=== PATIENT | male | born 1960 | race Caucasian/White ===

== ENCOUNTER → 2019-07-19 07:56 | Outpatient (CLI) | payer OTHER, SELFPAY ==
[2019-07-19 09:33] LABS: Cholesterol 181 mg/dL (140-199); HDL Cholesterol 36 mg/dL (40-60); LDL Cholesterol Calculated 112 mg/dL (<100); Triglycerides 164 mg/dL (35-150)
== END ==
PROVIDERS: Visit Provider Internal Medicine Cardiovascular Disease
DX: Z00.00 Encounter for general adult medical examination without abnormal findings (principal)
CPT/HCPCS: 36415; 80061

== ENCOUNTER → 2019-10-22 15:45 | Outpatient (CLI) | payer OTHER, SELFPAY ==
--- NOTE | 2019-10-22 | DI.ECHO.S_ITS ---
[facility]---------+ [facility] +---------+ : : [address] : [address] : : : : [id number] : : : : Phone: [phone]+ Echocardiogram Report + + :Name: STEVEN HUTCHINS Study Date: 10/22/2019 Height: 71 in : :[facility] Weight: 170 lb : : Gender: Male BSA: 2.0 m2 : :: 1960 Age: 59 yrs BP: 128/78 mmHg: :Reason For Study: TACHYCARDIA : :Ordering Physician: Leoncio Mendes : :Tip Performed By: CHRISTOPHERF : :Referring: LEONCIO WHELAN : + + Interpretation Summary 1) Mildly left ventricular thickness (concentric) with normal size, normal wall motion, and normal systolic function (EF 60-65%). 2) Normal right ventricular size and function. 3) No significant valvular abnormalities. 4) No prior Echo available for comparison. Procedure: A two-dimensional transthoracic echocardiogram with color flow and Doppler was performed. The study quality was technically adequate. There is no prior echocardiogram noted for this patient. The patient was in normal sinus rhythm during the exam. Left Ventricle: The left ventricle is normal in size. Left ventricular wall thickness is mildly increased. The ejection fraction is estimated to be 60- 65%. Left ventricular wall motion is normal. Diastolic parameters suggest probable normal left ventricular diastolic function and normal filling pressures. Right Ventricle: The right ventricle is normal in size and function. Atria: Both atria are normal in size. There is no Doppler evidence for an interatrial shunt. Mitral Valve: The mitral valve is normal in structure and function. There is mild mitral regurgitation. Aortic Valve: The aortic valve is trileaflet. The aortic valve opens well. No aortic regurgitation is present. Tricuspid Valve: The tricuspid valve is normal in structure and function. There is trace tricuspid regurgitation. Pulmonary artery pressures cannot be estimated because of the lack of a measurable TR jet velocity. Pulmonic Valve: The pulmonic valve is normal in structure and function. There is mild pulmonic regurgitation. Great Vessels: The aortic root is normal size. The ascending aorta is normal in size. The IVC is of normal diameter and collapses greater than 50% with a sniff. This suggests a low right atrial pressure of 3 mm Hg. Pericardium/ Pleura There is no pericardial effusion. MMode/2D Measurements & Calculations LVIDd: 4.6 cm LVOT diam: 2.1 cm LVIDs: 2.9 cm Ao root diam: 3.5 cm FS: 36.7 % asc Aorta Diam: 3.1 cm EPSS: 0.48 cm IVSd: 1.2 cm LVPWd: 1.3 cm LV haji. diameter/BSA (cm/m^2): 2.3 LV sys. diameter/BSA (cm/m^2): 1.5 LA A2 area: 20.5 cm2 RA long axis: 5.2 cm LA A4 area: 19.2 cm2 RA area: 14.1 cm2 LA length (vol): 5.2 cm RA vol: 32.9 ml LA vol: 64.2 ml RA : 16.7 ml/m2 LA vol index: 32.6 ml/m2 IVC diam: 2.1 cm RVD1 (basal): 3.6 cm RVD2 (mid): 3.0 cm TAPSE: 2.1 cm Doppler Measurements & Calculations Ao V2 max: 119.9 cm/sec LVOT Max Wai: 108.6 cm/sec Ao V2 mean: 81.8 cm/sec LV V1 max P.7 mmHg Ao max P.7 mmHg LV V1 VTI: 23.9 cm Ao mean P.0 mmHg SONIA(I,D): 3.0 cm2 Ao V2 VTI: 27.7 cm SONIA(V,D): 3.1 cm2 sev ratio: 0.86 SONIA indexed to BSA (cm^2/m^2): 1.5 MV E max wai: 81.1 cm/sec PA V2 max: 73.0 cm/sec MV A max wai: 65.8 cm/sec PA V2 mean: 52.7 cm/sec MV E/A: 1.2 PA mean P.2 mmHg Med Peak E' Wai: 11.8 cm/sec PA pr(Accel): 16.6 mmHg E/E' med: 6.9 PA Accel Time: 0.14 sec Lat Peak E' Wai: 15.1 cm/sec E/E' lat: 5.4 E/e' average: 6.1 MV dec time: 0.26 sec MV P1/2t: 73.2 msec MV P1/2t max wai: 81.0 cm/sec SV(LVOT): 81.7 ml MVA(P1/2t): 3.0 cm2 Reading Physician:11:24 AM
== END ==
PROVIDERS: Referring Provider Internal Medicine Cardiovascular Disease; Visit Provider Internal Medicine Cardiovascular Disease
DX: I34.0 Nonrheumatic mitral (valve) insufficiency (principal); I37.1 Nonrheumatic pulmonary valve insufficiency; R00.0 Tachycardia, unspecified
CPT/HCPCS: 93306

== ENCOUNTER 2020-11-21 23:22 | Emergency (ER) | payer OTHER, SELFPAY ==
[2020-11-21 23:30] VITALS: BP 177/84; PULSE 104; RESP 15; TEMP 37.4; O2SAT 96; BMI 24.4
--- NOTE | 2020-11-21 23:42 | ED_ITS ---
HPI - General Adult General Chief complaint: Upper Respiratory Symptoms Stated complaint: Headache and fever Time Seen by Provider: 11/22/20 00:12 Source: patient Mode of arrival: Ambulatory Limitations: no limitations History of Present Illness HPI narrative: This is a 60-year-old male comes emergency department with concern for sinusitis. Patient states he had sinusitis in June. They tried amoxicillin which was unsuccessful followed by Levaquin and he improvement. He states the pain had resolved but he continued to have nasal drainage that was yellow greenish particularly from the left side since then. In the last 24 hours he developed a fever. He has developed increased pain over the left forehead and cheek he states this feels similar to his prior episode knee continues to have increasing yellow-greenish drainage. He denies any chest pain or shortness of breath. No nausea or vomiting. No other GI or urinary symptoms. Patient denies any other symptoms. Related Data Previous Rx's Medication Instructions Recorded doxycycline hyclate 100 mg PO BID #20 tab 11/22/20 Allergies Allergy/AdvReac Type Severity Reaction Status Date / Time No Known Allergies Allergy Uncoded 12/27/17 12:41 Review of Systems Review of Systems ROS Unobtainable: All systems reviewed & are unremarkable except as noted in HPI and below Exam Narrative Exam Narrative: GEN: well nourished, well appearing male, alert and oriented x 3, patient appears to be in mild distress. HEENT: Atraumatic, pupils are equal round reactive to light, extraocular movements are intact, nares show some swelling of the turbinates particularly on the left, patient also has some yellow-greenish drainage, TMs are clear with no fluid, there is no conjunctival pallor. Throat is clear without any exudates, erythema, tonsillar enlargement or uvular deviation, patient has pain over the left maxillary region. Warmth erythema. HEART: Regular rate and rhythm without murmur, clicks, rubs. LUNGS:Lungs clear to auscultation, no wheezes, rales, crackles, chest moves symmetrically ABD:bowel sounds normal, soft, non-tender, no guarding, rebound, rigidity, no masses noted, no hepatosplenomegaly MSCL: full range of motion, normal gait NEURO:CN 2-12 intact, sensation normal SKIN: No rash or other skin changes noted. Initial Vital Signs Initial Vital Signs: Vital Signs Temperature 99.3 F 11/21/20 23:30 Pulse Rate 104 H 11/21/20 23:30 Respiratory Rate 15 11/21/20 23:30 Blood Pressure 177/84 H 11/21/20 23:30 Pulse Oximetry 96 11/21/20 23:30 Course Orders Ordered: Discontinued Medications Doxycycline Hyclate (Doxycycline Hyclate 100 Mg Tablet) 100 mg PO NOW ONE Stop: 11/22/20 00:37 Last Admin: 11/22/20 00:41 Dose: 100 mg Documented by: GHANSHYAM Vital Signs Vital signs: Vital Signs - 8 hr 11/21/20 23:30 11/22/20 00:45 Temperature 99.3 F Pulse Rate 104 H 80 Respiratory Rate 15 18 Blood Pressure 177/84 H 152/84 H Pulse Oximetry 96 94 Medical Decision Making [facility] Narrative Medical decision making narrative: 60-year-old male with reported fever, left- sided maxillary pain, green-yellow nasal discharge with symptoms concerning for possible sinusitis. Patient has been using nasal rinses. He is using Flonase regularly. We discussed adding an antihistamine. With his reported fever plan to start oral antibiotics. Discharge Plan Departure Patient Disposition: Home Clinical Impression: Sinusitis Instructions: DI for Sinusitis Activity Restrictions/Additional Instructions: Follow with your primary care team in the next week if you are not having improvement. You can also follow-up with ENT if her having continued persistent symptoms. I recommended antihistamines such as Claritin once daily. Continue Flonase 1-2 puffs bilateral sides of the nose daily Take antibiotics until they are completely gone. Returned for fevers, lightheadedness or passing out, severe swelling of the face, swelling of the mouth, Throat oropharynx, persistent vomiting, new chest pain or shortness of breath or other new or concerning symptoms. Prescriptions: New doxycycline hyclate 100 mg tablet 100 mg PO BID Qty: 20 RF: 0 Referrals: Panfilo Mcdonnell MD [Physician] -
[2020-11-22] MEDS: DOXYCYCLINE HYCLATE 100 MG TABLET PO (00:41)
[2020-11-22 00:45] VITALS: BP 152/84; PULSE 80; RESP 18; O2SAT 94
== END 2020-11-22 00:46 | disposition home or self-care (01) ==
PROVIDERS: Emergency Provider Emergency Medicine
DX: J32.9 Chronic sinusitis, unspecified (principal)
CPT/HCPCS: 99281; 99283

== ENCOUNTER → 2022-01-12 11:00 | Outpatient (CLI) | payer OTHER, SELFPAY ==
[2022-01-12 13:09] LABS: Add Manual Diff / Slide Review NO; Basophils Absolute Auto 0 /uL (0-100); Basophils Percent Auto 0.6 % (0-2); Eosinophils Absolute Auto 100 /uL (0-450); Eosinophils Percent Auto 2.2 % (2-4); Hematocrit 41.6 % (41-53); Hemoglobin 14.4 g/dL (13.5-17.5); Lymphocytes Absolute Auto 1600 /uL (1100-4500); Lymphocytes Percent Auto 40.4 % (25-40); Mean Corpuscular HGB Conc 34.6 % (30-36); Mean Corpuscular Hemoglobin 29.9 PG (26-34); Mean Corpuscular Volume 86.5 fL (80-100); Monocytes Absolute Auto 500 /uL (0-900); Monocytes Percent Auto 12.4 % (3-14); Neutrophils Absolute Auto 1800 /uL (1500-7000); Neutrophils Percent Auto 44.4 % (50-75); Platelet Count 229 X10^3/uL (150-400); Red Blood Cell Count 4.82 X10^6/uL (4.5-5.9)
[2022-01-12 14:07] LABS: BUN Creatinine Ratio 17.4 (6-22); Blood Urea Nitrogen 15 mg/dL (9-20); Calcium 8.6 mg/dL (8.4-10.2); Carbon Dioxide 29 mmol/L (22-32); Chloride 106 mmol/L (98-107); Cholesterol 178 mg/dL (140-199); Estimated Glomerular Filt Rate > 60 mL/min (>60); Glucose 86 mg/dL (80-110); HDL Cholesterol 30 mg/dL (40-60); HEMOLYSIS < 15 (0-50); LDL Cholesterol Calculated 118 mg/dL (<100); Potassium 4.5 mmol/L (3.4-5.1); Sodium 140 mmol/L (137-145); Triglycerides 151 mg/dL (35-150)
[2022-04-28 16:30] LABS: COVID19 -Nasal RAPID Negative (Negative)
== END ==
PROVIDERS: PCP Family Medicine; Referring Provider Internal Medicine Cardiovascular Disease; Visit Provider Internal Medicine Cardiovascular Disease
DX: I10 Essential (primary) hypertension (principal)
CPT/HCPCS: 36415; 80048; 80061; 85025; 87635; C9803

== ENCOUNTER → 2022-04-28 12:48 | Outpatient (CLI) | payer OTHER, SELFPAY ==
--- NOTE | 2022-04-28 12:50 | DI.ECHO.S_ITS ---
[facility]---------+ [facility] +---------+ : : [address] : [address] : : : : [id number] : : : : Phone: [phone]+ Echocardiogram Report + + :Name: STEVEN HUTCHINS Study Date: 04/28/2022 Height: 71 in : :[facility] ReadingLocation: Weight: 180 lb : : Gender: Male BSA: 2.0 m2 : :: 1960 Age: 62 yrs BP: 131/77 mmHg: :Reason For Study: Chest pain : :Ordering Physician: RADHA, : :LEONCIO Performed By: Shin Lomeli : :Referring: LEONCIO WHELAN : + + Interpretation Summary 1) Mildly left ventricular thickness (concentric) with normal size, normal wall motion, and normal systolic function (EF 60-65%). 2) Normal right ventricular size and function. 3) No significant valvular abnormalities. 4) Compared to the Echo done 10/22/2019, no significant change. Procedure: A two-dimensional transthoracic echocardiogram with color flow and Doppler was performed. The study quality was technically adequate. Comparison is made with the echocardiogram of 10/22/2019. The patient was in normal sinus rhythm during the exam. Left Ventricle: The left ventricle is normal in size. There is mild concentric left ventricular hypertrophy. Left ventricular systolic function is normal. The ejection fraction is estimated to be 60-65%. There are no focal wall motion abnormalities. Diastolic parameters suggest probable normal left ventricular diastolic function and normal filling pressures. Right Ventricle: The right ventricle is normal in size and function. Atria: Both atria are normal in size. The interatrial septum grossly appears intact with no obvious evidence for an atrial septal defect. Mitral Valve: The mitral valve is normal in structure and function. There is mild mitral regurgitation. Aortic Valve: The aortic valve is normal in structure and function. There is no aortic valve stenosis. No aortic regurgitation is present. Tricuspid Valve: The tricuspid valve is normal in structure and function. There is a trace or physiologic amount of tricuspid regurgitation. Pulmonary artery pressures cannot be estimated because of the lack of a measurable TR jet velocity. Pulmonic Valve: The pulmonic valve is normal in structure and function. There is mild pulmonic regurgitation. Great Vessels: The aortic root is normal size. The dimensions of the ascending aorta are normal. The IVC is of normal diameter and collapses greater than 50% with a sniff. This suggests a low right atrial pressure of 3 mm Hg. Pericardium/ Pleura There is no pericardial effusion. There is no pleural effusion. MMode/2D Measurements & Calculations LVIDd: 4.7 cm LVOT diam: 2.2 cm LVIDs: 3.0 cm Ao root diam: 3.4 cm FS: 37.4 % asc Aorta Diam: 3.0 cm IVSd: 1.3 cm LVPWd: 1.1 cm LV haji. diameter/BSA (cm/m^2): 2.3 LV sys. diameter/BSA (cm/m^2): 1.5 LA A2 area: 18.6 cm2 RA long axis: 5.4 cm LA A4 area: 19.1 cm2 RA area: 14.7 cm2 LA length (vol): 5.3 cm RA vol: 34.2 ml LA vol: 57.2 ml RA : 17.0 ml/m2 LA vol index: 28.4 ml/m2 TAPSE: 2.2 cm Doppler Measurements & Calculations Ao V2 max: 122.5 cm/sec LVOT Max Wai: 101.4 cm/sec Ao V2 mean: 82.5 cm/sec LV V1 max P.1 mmHg Ao max P.0 mmHg LV V1 VTI: 20.8 cm Ao mean P.0 mmHg SONIA(I,D): 3.5 cm2 Ao V2 VTI: 23.5 cm SONIA(V,D): 3.2 cm2 sev ratio: 0.88 SONIA indexed to BSA (cm^2/m^2): 1.7 MV E max wai: 91.3 cm/sec SV(LVOT): 81.3 ml MV A max wai: 68.3 cm/sec MV E/A: 1.3 Med Peak E' Wai: 7.6 cm/sec E/E' med: 12.0 Lat Peak E' Wai: 10.3 cm/sec E/E' lat: 8.8 E/e' average: 10.4 MV dec time: 0.18 sec Reading Physician:03:48 PM
--- NOTE | 2022-04-29 18:14 | DI.NM.S_ITS ---
DATE OF SERVICE: 04/28/2022 PROCEDURE PERFORMED: Exercise treadmill stress test without imaging. ORDERING PROVIDER: Dr. Oswald Whelan. INDICATIONS: The patient is a 62-year-old hypertensive male with a history of atrial tachycardia and atypical chest pain. FINDINGS: 1. The patient was able to exercise for 10 minutes, 33 seconds on a standard [place] protocol, suggesting very good exercise capacity with an STACY of -23%, achieving 12.8 METs. 2. He had a normal heart rate response to exercise, achieving a maximum heart rate of 149 BPM (94% of his predicted maximum). He had a mild hypertensive blood pressure response to exercise with a resting blood pressure of 110/70, increasing to a maximum of 210/80. 3. He had no chest discomfort or other anginal symptoms. 4. His resting ECG shows normal sinus rhythm with normal ST segments. There are no significant ST-segment shifts or arrhythmias with stress. IMPRESSION: 1. Normal exercise treadmill study for ischemia. 2. Very good exercise capacity without angina or arrhythmias. He had a mild hypertensive blood pressure response to exercise. Albert Vazquez - KHADIJAH/deann/supriya doc#: [id number]/job#: [id number] dd: 04/29/2022 16:49:00 dt: 04/29/2022 17:51:00 DICTATING /COPIES TO: Morgan Greene MD COPIES MNE: JEFFRY
== END ==
PROVIDERS: PCP Family Medicine; Referring Provider Internal Medicine Cardiovascular Disease; Visit Provider Internal Medicine Cardiovascular Disease
DX: I37.1 Nonrheumatic pulmonary valve insufficiency (principal); I34.0 Nonrheumatic mitral (valve) insufficiency; I51.7 Cardiomegaly; R07.9 Chest pain, unspecified
CPT/HCPCS: 93017; 93306

== ENCOUNTER → 2023-03-23 10:40 | Outpatient (CLI) | payer OTHER, SELFPAY ==
[2023-03-23 12:39] LABS: Cholesterol 110 mg/dL (140-199); HDL Cholesterol 34 mg/dL (40-60); LDL Cholesterol Calculated 60 mg/dL (<100); Triglycerides 81 mg/dL (35-150)
== END ==
PROVIDERS: Referring Provider Internal Medicine Cardiovascular Disease; Visit Provider Internal Medicine Cardiovascular Disease
DX: E78.5 Hyperlipidemia, unspecified (principal)
CPT/HCPCS: 36415; 80061

== ENCOUNTER → 2024-03-26 11:33 | Outpatient (CLI) | payer OTHER, SELFPAY ==
[2024-03-26 14:42] LABS: Hematocrit 40.7 % (41-53); Mean Corpuscular HGB Conc 34.5 % (30-36); Platelet Count 202 X10^3/uL (150-400); Red Blood Cell Count 4.68 X10^6/uL (4.5-5.9); Red Cell Distribution Width 12.9 % (11.6-14.8); White Blood Cell Count 4.5 X10^3/uL (4.5-11.0)
[2024-03-26 15:05] LABS: BUN Creatinine Ratio 16.9 (6-22); Blood Urea Nitrogen 15 mg/dL (9-20); Calcium 8.6 mg/dL (8.4-10.2); Carbon Dioxide 28 mmol/L (22-32); Chloride 107 mmol/L (98-107); Cholesterol 104 mg/dL (140-199); Estimated Glomerular Filt Rate > 60 mL/min (>60); Glucose 87 mg/dL (80-110); HDL Cholesterol 39 mg/dL (40-60); HEMOLYSIS < 15 (0-50); LDL Cholesterol Calculated 48 mg/dL (<100); Potassium 4.3 mmol/L (3.4-5.1); Sodium 139 mmol/L (137-145); Triglycerides 86 mg/dL (35-150)
== END ==
PROVIDERS: Referring Provider Internal Medicine Cardiovascular Disease; Visit Provider Internal Medicine Cardiovascular Disease
DX: E78.5 Hyperlipidemia, unspecified (principal); I25.10 Atherosclerotic heart disease of native coronary artery without angina pectoris
CPT/HCPCS: 36415; 80048; 80061; 85027

== ENCOUNTER → 2025-03-14 09:51 | Outpatient (CLI) | payer MEDICARE, OTHER, SELFPAY ==
[2025-03-14 10:36] LABS: Hematocrit 42.4 % (41-53); Hemoglobin 14.8 g/dL (13.5-17.5); Mean Corpuscular HGB Conc 34.8 % (30-36); Mean Corpuscular Hemoglobin 30.2 PG (26-34); Mean Corpuscular Volume 86.8 fL (80-100); Platelet Count 214 X10^3/uL (150-400); Red Blood Cell Count 4.89 X10^6/uL (4.5-5.9); Red Cell Distribution Width 12.7 % (11.6-14.8); White Blood Cell Count 4.2 X10^3/uL (4.5-11.0)
[2025-03-14 10:59] LABS: BUN Creatinine Ratio 17.9 (6-22); Blood Urea Nitrogen 14 mg/dL (9-20); Calcium 9.3 mg/dL (8.4-10.2); Carbon Dioxide 26 mmol/L (22-32); Chloride 106 mmol/L (98-107); Cholesterol 107 mg/dL (140-199); Estimated Glomerular Filt Rate > 60 mL/min (>60); Glucose 94 mg/dL (70-99); HDL Cholesterol 35 mg/dL (40-60); LDL Cholesterol Calculated 41 mg/dL (<100); Sodium 139 mmol/L (137-145); Triglycerides 154 mg/dL (35-150)
[2025-03-14 11:01] LABS: HEMOLYSIS 63 (0-50)
[2025-03-14 11:02] LABS: Potassium 4.9 mmol/L (3.4-5.1)
== END ==
PROVIDERS: PCP Family Medicine; Referring Provider Internal Medicine Cardiovascular Disease; Visit Provider Internal Medicine Cardiovascular Disease
DX: I25.10 Atherosclerotic heart disease of native coronary artery without angina pectoris (principal)
CPT/HCPCS: 36415; 80048; 80061; 85027

== ENCOUNTER → 2025-06-11 11:53 | Outpatient (CLI) | payer MEDICARE, OTHER, SELFPAY ==
[2025-06-11 13:18] LABS: Prostate Specific Antigen 0.621 ng/mL (0.10-4.00)
== END ==
PROVIDERS: PCP Family Medicine; Referring Provider Family Medicine; Visit Provider Family Medicine
DX: N40.1 Benign prostatic hyperplasia with lower urinary tract symptoms (principal); N13.8 Other obstructive and reflux uropathy; Z12.5 Encounter for screening for malignant neoplasm of prostate
CPT/HCPCS: 36415; 84153